=== PATIENT | male | born 1945 | race Two or more races ===

== ENCOUNTER 2017-08-24 12:20 | Emergency (ER) | payer OTHER ==
[~2017-08-24] VITALS: Ht 170.2 cm; Wt 70.3 kg
[2017-08-24 14:35] VITALS: BP 125/79
== END 2017-08-24 14:35 | disposition home or self-care (01) ==
LOC: ED 12:20
DX: R42 Dizziness and giddiness (principal); R11.2 Nausea with vomiting, unspecified; R61 Generalized hyperhidrosis; I10 Essential (primary) hypertension; E11.9 Type 2 diabetes mellitus without complications; E78.00 Pure hypercholesterolemia, unspecified
CPT/HCPCS: 82962; J2765; J7030; J8597

== ENCOUNTER 2018-06-26 08:35 | Emergency (ER) | payer OTHER ==
[~2018-06-26] VITALS: Ht 170.2 cm; Wt 61.2 kg
[2018-06-26 08:50] VITALS: Ht 170.2 cm; Wt 61.2 kg
[2018-06-26 11:31] VITALS: BP 150/91
== END 2018-06-26 12:03 | disposition home or self-care (01) ==
LOC: ED 08:35
DX: K59.00 Constipation, unspecified (principal); I10 Essential (primary) hypertension; E11.9 Type 2 diabetes mellitus without complications; E78.00 Pure hypercholesterolemia, unspecified; Z98.890 Other specified postprocedural states
CPT/HCPCS: J1885; Q0092

== ENCOUNTER 2018-11-30 15:44 | Emergency (ER) | payer OTHER | END 2018-11-30 16:06 | disposition left against medical advice (07) | LOC: ED 15:44 | DX: Z53.21 Procedure and treatment not carried out due to patient leaving prior to being seen by health care provider (principal) ==

== ENCOUNTER 2020-04-14 16:28 | Emergency (ER) | payer OTHER ==
[~2020-04-14] VITALS: Ht 167.6 cm; Wt 72.1 kg
[2020-04-14 16:31] VITALS: Ht 167.6 cm; Wt 72.1 kg
[2020-04-14 17:57] VITALS: BP 148/75
== END 2020-04-14 17:57 | disposition home or self-care (01) ==
LOC: ED 16:28
DX: S93.402A Sprain of unspecified ligament of left ankle, initial encounter (principal); I10 Essential (primary) hypertension; E11.9 Type 2 diabetes mellitus without complications; E78.00 Pure hypercholesterolemia, unspecified; Z98.890 Other specified postprocedural states; W01.0XXA Fall on same level from slipping, tripping and stumbling without subsequent striking against object, initial encounter; Y93.89 Activity, other specified; Y92.89 Other specified places as the place of occurrence of the external cause; Y99.8 Other external cause status